=== PATIENT | male | born 1955 | race Caucasian/White ===

== ENCOUNTER 2023-06-20 07:59 | Emergency (ER) | payer OTHER ==
[~2023-06-20] VITALS: Ht 175.2 cm; Wt 63.5 kg
[2023-06-20] MEDS ORDERED: METHOCARBAMOL750 M1 PO ×2 (08:20)
[2023-06-20] MEDS ORDERED: NAPROSYN500 MG PO ×2 (08:20)
[2023-06-25] MEDS ORDERED: MECLIZINE HCL25 M2 PO (11:53)
== END 2023-06-20 09:39 | disposition home or self-care (01) ==
LOC: ED 07:59
DX: S39.012A Strain of muscle, fascia and tendon of lower back, initial encounter (principal); M54.41 Lumbago with sciatica, right side; F17.290 Nicotine dependence, other tobacco product, uncomplicated; X58.XXXA Exposure to other specified factors, initial encounter; Y93.89 Activity, other specified; Y92.009 Unspecified place in unspecified non-institutional (private) residence as the place of occurrence of the external cause; Y99.8 Other external cause status

== ENCOUNTER 2024-07-31 11:31 | Emergency (ER) | payer OTHER, MEDICAID ==
[~2024-07-31] VITALS: Ht 175.2 cm; Wt 69.9 kg
[~2024-07-31 11:31] MED LIST: MECLIZINE HCL25 M2 PO; METHOCARBAMOL750 M1 PO; NAPROSYN500 MG PO
[2024-07-31] MEDS ORDERED: PENICILLIN VK500 MG PO (12:01)
[2024-07-31] MEDS ORDERED: NAPROSYN500 MG PO (12:01)
[2024-07-31] MEDS ORDERED: PENICILLIN V POTASSIUM 500 MG TAB PO ONE (12:05)
[2024-07-31] MEDS ORDERED: Acetaminophen/Hydrocodone 5 MG/325 MG TABLET PO ONE (12:05)
[2024-07-31] MEDS ORDERED: Ketorolac Tromethamine 30 MG/ML VIAL IM ONE (12:05)
== END 2024-07-31 12:31 | disposition home or self-care (01) ==
LOC: ED 11:31
DX: K04.7 Periapical abscess without sinus (principal); F41.9 Anxiety disorder, unspecified; F32.A Depression, unspecified; E78.00 Pure hypercholesterolemia, unspecified; F12.90 Cannabis use, unspecified, uncomplicated; Z88.5 Allergy status to narcotic agent; Z98.890 Other specified postprocedural states; Z87.891 Personal history of nicotine dependence

== ENCOUNTER 2024-10-11 19:36 | Emergency (ER) | payer OTHER, MEDICAID ==
[~2024-10-11] VITALS: Ht 175.2 cm; Wt 63.5 kg
[~2024-10-11 19:36] MED LIST changes: +PENICILLIN VK500 MG PO
[2024-10-11] MEDS ORDERED: HYDROmorphONE Hydrochloride 0.5 MG/0.5 ML SYRINGE IV ONE (21:35)
[2024-10-11] MEDS ORDERED: Ondansetron Hydrochloride 4 MG/2 ML VIAL IV ONE (21:35)
== END 2024-10-11 23:43 | disposition short-term general hospital (02) ==
LOC: ED 19:36
DX: S02.40CA Maxillary fracture, right side, initial encounter for closed fracture (principal); S02.31XA Fracture of orbital floor, right side, initial encounter for closed fracture; S60.511A Abrasion of right hand, initial encounter; Z88.5 Allergy status to narcotic agent; Z79.899 Other long term (current) drug therapy; Z79.2 Long term (current) use of antibiotics; Z98.890 Other specified postprocedural states; Z87.891 Personal history of nicotine dependence; W01.198A Fall on same level from slipping, tripping and stumbling with subsequent striking against other object, initial encounter; Y93.89 Activity, other specified; Y92.89 Other specified places as the place of occurrence of the external cause; Y99.8 Other external cause status